=== PATIENT | male | born 1985 | race Caucasian/White ===

== ENCOUNTER 2017-03-02 02:06 | Emergency (ER) | payer BC ==
[2017-03-02 02:11] VITALS: RESP 16
--- NOTE | 2017-03-02 02:59 | C.PDOC ---
History Of Present Illness 32 year old male presents to the ED with complaints of SOB and CP, he states feeling like not having enough air, this occurred about an hour ago but he states feeling better now. He denies having any pertinent medical issues, works moving heavy boxes. Patient denies any cough, asthma, fever, sweats, nausea, DVT , or vomit. Chief Complaint (Nursing): Shortness Of Breath History Per: Patient History/Exam Limitations: no limitations Onset/Duration Of Symptoms: Hrs Current Symptoms Are (Timing): Gone Quality: Tightness Exacerbating Factor(s): Exertion Current Respiratory Medications: None Severity: None Associated Symptoms: Chest Pain. denies: Fever, Chills, Sweating, Bloody Cough , Productive Cough, Dizziness Recent travel outside of the [place]: No Additional History Per: Patient Past Medical History Reviewed: Historical Data, Nursing Documentation, Vital Signs Vital Signs: Last Vital Signs Temp 97.9 F 03/02/17 05:39 Pulse 76 03/02/17 05:39 Resp 16 03/02/17 05:39 BP 116/75 03/02/17 05:39 Pulse Ox 98 03/02/17 06:32 - Medical History PMH: No Chronic Diseases Surgical History: No Surg Hx Family History: States: Unknown Family Hx - Social History Hx Alcohol Use: Yes Hx Substance Use: No Review Of Systems Constitutional: Negative for: Fever, Chills, Sweats Cardiovascular: Positive for: Chest Pain. Negative for: Palpitations Respiratory: Positive for: Shortness of Breath. Negative for: Cough Gastrointestinal: Negative for: Nausea, Vomiting Neurological: Negative for: Weakness, Numbness Physical Exam - Physical Exam Appears: Non-toxic, No Acute Distress Skin: Normal Color, Warm, Dry Head: Atraumatic, Normacephalic Neck: Normal, Supple Chest: Symmetrical Cardiovascular: Rhythm Regular, No Friction Rub, No Murmur Respiratory: Normal Breath Sounds, No Rales, No Rhonchi, No Wheezing Gastrointestinal/Abdominal: Bowel Sounds (active), Soft, No Tenderness, No Guarding, No Rebound Extremity: Normal ROM, No Tenderness, No Pedal Edema, No Deformity, No Swelling Pulses: Left Dorsalis Pedis: Normal, Right Dorsalis Pedis: Normal Neurological/Psych: Oriented x3, Normal Speech, Normal Cognition ED Course And Treatment - Laboratory Results Result Diagrams: 03/02/17 03:20 03/02/17 03:20 ECG: Interpreted By Me ECG Interpretation: Normal, No Acute Changes O2 Sat by Pulse Oximetry: 98 (On RA) Pulse Ox Interpretation: Normal - Radiology CXR: Interpreted by Me, Viewed By Me CXR Interpretation: Yes: No Acute Disease. No: Fracture, Cardiomegaly, Pnemothorax Nexus Criteria: Negative Medical Decision Making Medical Decision Making: Impression : 32 y/o male presents to the ED with complains of SOB and CP Plan : * EKG ordered * Blood work ordered * CXR ordered Patients CXR was found to be unremarkable with no active pulmonary disease, normal cardiac silhouette, very low risk for PE. deisynet will be discharged and treated for chest wall syndrome. Disposition - Disposition Referrals: [facility] [Outside] Disposition: HOME/ ROUTINE Disposition Time: 07:20 Condition: GOOD Prescriptions: Naproxen [Naprosyn] 500 mg PO BID #20 tablet Instructions: Chest Wall Pain (ED) Forms: General Discharge Instructions, [facility] (Persian) Print Language: DIVEHI - Clinical Impression Clinical Impression: Acute chest wall pain - Scribe Statement The provider has reviewed the documentation as recorded by the Scribe Shahbaz Durand All medical record entries made by the Scribe were at my direction and personally dictated by me. I have reviewed the chart and agree that the record accurately reflects my personal performance of the history, physical exam, medical decision making, and the department course for this patient. I have also personally directed, reviewed, and agree with the discharge instructions and disposition.
[2017-03-02 03:27] LABS: CHLORIDE 102 mmol/L (98-107); EOS # 0.1 K/uL (0.0-0.7); EOS % 2.3 % (0.0-4.0); MEAN CELL VOLUME 91.3 fL (80.0-94.0); MEAN CORPUSCULAR HEMOGLOBIN 32.1 pg (27.0-31.0); MEAN CORPUSCULAR HGB CONC 35.2 g/dL (33.0-37.0); MONO # 0.5 K/uL (0.0-0.8); MONO % 11.2 % (0.0-10.0); NRBC % 0.1 % (0.0-2.0); RED CELL DISTRIBUTION WIDTH 12.9 % (11.5-14.5); WHITE BLOOD COUNT 4.2 K/uL (4.8-10.8)
[2017-03-02 03:28] LABS: SODIUM 138 mmol/L (132-148)
[2017-03-02 03:29] LABS: GFR AFRICAN-AMERICAN > 60
[2017-03-02 03:30] LABS: ALB/GLOB RATIO 1.2 (1.0-2.1); ALKALINE PHOSPHATASE 46 U/L (38-126); ALT/SGPT 34 U/L (21-72); AST/SGOT 35 U/L (17-59); BILIRUBIN,TOTAL 1.9 mg/dL (0.2-1.3); BLOOD UREA NITROGEN 16 mg/dL (9-20); CALCIUM 9.3 mg/dl (8.6-10.4); CARBON DIOXIDE 27 mmol/L (22-30); GLUCOSE,RANDOM 73 mg/dL (75-110); TOTAL PROTEIN 8.3 g/dL (6.3-8.3)
[2017-03-02 03:55] LABS: POTASSIUM 4.7 mmol/L (3.6-5.2)
[2017-03-02 05:40] VITALS: BP 116/75; PULSE 76; TEMP 97.9
[2017-03-02 06:27] VITALS: O2SAT 98
--- NOTE | 2017-03-02 10:03 | RAD ---
PROCEDURE: CHEST RADIOGRAPH, 1 VIEW HISTORY: chest pain COMPARISON: None available. FINDINGS: LUNGS: Mild biapical pleural thickening left greater than right PLEURA: No pneumothorax or pleural fluid seen. CARDIOVASCULAR: Normal. OSSEOUS STRUCTURES: Mild dextroscoliosis centered in the lower thoracic region. VISUALIZED UPPER ABDOMEN: Normal. OTHER FINDINGS: None. IMPRESSION: No acute infiltrates
--- NOTE | 2017-03-04 12:44 | CARD ---
APPROVED REPORT EKG Measurement Heart [id number] <Conclusion> Normal sinus rhythm Possible Left atrial enlargement Rightward axis Borderline ECG
--- NOTE | 2017-03-04 12:45 | CARD ---
APPROVED REPORT EKG Measurement Heart [id number] [place] [id number] <Conclusion> Normal sinus rhythm Rightward axis Borderline ECG
== END 2017-03-02 05:39 | disposition home or self-care (01) ==
LOC: EDBD 02:06 → C.ER 02:06
DX: R07.89 Other chest pain (principal)